=== PATIENT | male | born 1960 | race Caucasian/White ===

== ENCOUNTER 2024-08-27 22:32 | Emergency (ER) | payer MEDICARE | END 2024-08-27 23:30 | disposition left against medical advice (07) | LOC: ER 22:38 | DX: S60.561A Insect bite (nonvenomous) of right hand, initial encounter (principal); Z53.21 Procedure and treatment not carried out due to patient leaving prior to being seen by health care provider; W57.XXXA Bitten or stung by nonvenomous insect and other nonvenomous arthropods, initial encounter; Y93.89 Activity, other specified; Y92.89 Other specified places as the place of occurrence of the external cause; Y99.8 Other external cause status ==